=== PATIENT | female | born 1980 | race Caucasian/White ===

== ENCOUNTER → 2017-06-10 | Outpatient (CLI) | payer OTHER ==
[~2017-06-10] MED LIST: ALBUTEROL17 GM INH; ANAPROX DS PO; AUGMENTIN PO; BACITRACIN30 GM TOP; BACLOFEN10 MG PO; BACTRIM DS TABL1 TA1 PO; CIPRO PO; CYMBALTA PO; DAYPRO600 M1 PO; FLEXERIL PO; FLEXERIL10 MG PO; HYDROCODON-ACE1 EAC4 PO; IBUPROFEN PO; IBUPROFEN600 MG; IBUPROFEN800 MG PO; KEFLEX PO; KEFLEX500 M1 PO; KLONOPIN0.5 MG; KLONOPIN1 MG PO; LORTAB 2.5/5001 TAB PO; LORTAB 7.5-3251 EACH PO; METRONIDAZOLE PO; NEXIUM PO; NO MEDICATIONS; ORUDIS75 M1 PO; PERCOCET; PERCOCET 10/3251 TAB PO; PERCOCET10 PO; PERCOCET5/325 PO; PHENERGAN25 MG PO; PREDNISONE PO; PREDNISONE5 M1 PO; PROZAC PO; ROBAXIN PO; ROBAXIN500 MG PO; ROBITUSSIN DM T10 ML PO; SEROQUEL PO; SKELAXIN PO; TOPROL XL100 MG PO; TYLENOL #3 PO; ULTRAM PO; VENTOLIN5 MG/ML IH; VICODIN 5/1 TAB 5/50 PO; VICODIN 5/500 T1 TAB PO; VOLTAREN50 MG PO; VOLTAREN75 MG; VOLTAREN75 MG PO; ZANAFLEX4 M1 PO; ZITHROMAX PO
[2017-06-10 10:17] LABS: HEMATOCRIT 47.5 % (35.0-45.0); HEMOGLOBIN 16.2 gm/dL (12.0-16.0); MEAN CELL VOLUME 97.3 FL (83-96); MEAN CORPUSCULAR HEMOGLOBIN 33.2 PG (28-34); MEAN CORPUSCULAR HGB CONC 34.1 g/dL (30-36); MEAN PLATELET VOLUME 7.9 FL (6.5-11.5); RED BLOOD COUNT 4.88 X10e (3.90-5.30); RED CELL DISTRIBUTION WIDTH 13.6 % (11.0-15.5); WHITE BLOOD COUNT 10.6 X10e3 (4.0-10.5)
== END | disposition home or self-care (01) ==
LOC: SLAB 09:45
PROVIDERS: Orthopaedic Surgery
DX: Z01.812 Encounter for preprocedural laboratory examination (principal)
CPT/HCPCS: 36415; 84703; 85027